=== PATIENT | female | born 1970 | race Two or more races ===

== ENCOUNTER 2018-08-06 12:45 | Inpatient (IN) | payer OTHER ==
[~2018-08-06] VITALS: Ht 160 cm; Wt 68.0 kg
[2018-08-07] MEDS ORDERED: [UNRECOGNIZED DRUG - OTHER] PO (14:29)
[2018-08-07] MEDS ORDERED: JANUVIA100 MG PO (14:30)
[2018-08-07] MEDS ORDERED: ATORVASTATIN CA20 MG PO (14:30)
[2018-08-07] MEDS ORDERED: CLORAZEPATE D3.75 MG PO (14:31)
[2018-08-07] MEDS ORDERED: RESTORIL30 M1 PO (14:31)
[2018-08-11] MEDS ORDERED: PAXIL20 MG PO (08:10)
[2018-08-14] MEDS ORDERED: DOCUSATE SODIU100 MG PO (14:59)
[2018-08-14] MEDS ORDERED: GAS RELIEF125 MG PO (14:59)
[2018-08-14] MEDS ORDERED: IBUPROFEN800 MG PO (14:59)
== END 2018-08-14 18:00 | disposition home or self-care (01) | DRG 743 ==
LOC: O/R 08-11 04:44 → OB/GYN 08-11 04:44 → RECOVERY 08-11 11:00 → OB/GYN 08-11 11:56 → RECOVERY 08-11 17:30 → OB/GYN 08-14 18:00
PROVIDERS: ADMIT Obstetrics & Gynecology
PROC: 3E0F7GC Introduction of Other Therapeutic Substance into Respiratory Tract, Via Natural or Artificial Opening (ICD-10-PCS; 2018-08-11)
PROC: 0UT90ZZ Resection of Uterus, Open Approach (ICD-10-PCS; principal; 2018-08-11 17:30)
PROC: 0UT70ZZ Resection of Bilateral Fallopian Tubes, Open Approach (ICD-10-PCS; 2018-08-11 17:30)
DX: D25.1 Intramural leiomyoma of uterus (principal); D25.2 Subserosal leiomyoma of uterus; N80.0 Endometriosis of uterus; N72 Inflammatory disease of cervix uteri; D64.89 Other specified anemias; E11.9 Type 2 diabetes mellitus without complications; J45.30 Mild persistent asthma, uncomplicated; E78.00 Pure hypercholesterolemia, unspecified